=== PATIENT | male | born 1965 | race Caucasian/White ===

== ENCOUNTER → 2017-03-20 | Outpatient (CLI) | payer BC ==
[~2017-03-20] MED LIST: EFFEXOR XR PO; HYDROCODONE-APA1 T33 PO; LIPITOR PO; PROTONIX PO
--- NOTE | ~2017-03-20 | CT2 ---
[facility] A Service of [facility] / [facility] RADIOLOGY TEXT RESULTS PATIENT: HERB MABRY LOCATION: [facility] : 63 UNIT #: [id number] AGE: [address]: Bandar Servin MD SEX: M ORDER DR: [id number] [facility]. [place], [place] [address] [id number] O MR#: [id number] Acc #: [id number] NAME: HERB MABRY : 1965 SEX: M STUDY DATE/TIME: 03/20/2017 11:06 UNIT: [facility]AT ROOM: STUDY DESCRIPTION: CT Abd and Pelv W Cont Attending Physician: Bandar Servin M.D. Referring Physician: Bandar Servin M.D. Ordering Physician: Bandar Servin M.D. Primary Care Physician: Bandar Servin M.D. MEDICAL IMAGING REPORT This report is preliminary unless electronic signature is present EXAM CT abdomen and pelvis with contrast INDICATION Left lower quadrant abdominal pain for the past 2 months. PROCEDURE Contrast-enhanced CT of the abdomen and pelvis. This CT exam was performed with one or more of the following radiation dose reduction techniques: automatic exposure control, adjustment of mA and/or kV according to patient size, and iterative reconstruction. COMPARISON 09/26/2005 FINDINGS ABDOMEN WITH CONTRAST: The included lung bases are clear. Liver, spleen, kidneys, adrenal glands, pancreas are unremarkable. Previous cholecystectomy. The bowel loops are nondilated. Moderate colonic stool burden. Previous mesh repair of an umbilical hernia with no evidence for reherniation. PELVIS WITH CONTRAST: No pelvic mass or fluid. No aggressive appearing bone lesion. IMPRESSION 1. No clearly acute finding in the abdomen or pelvis. 2. Moderate colonic stool burden. 3. Other incidental findings detailed above. Dictated by... [facility] A Service of [facility] & [facility] RADIOLOGY TEXT RESULTS PATIENT: HERB MABRY LOCATION: [facility] : 63 UNIT #: [id number] AGE: [address]: Bandar Servin MD SEX: M ORDER DR: Jony Meredith M.D. THIS IS AN ELECTRONICALLY VERIFIED REPORT Jony Meredith M.D. at 03/20/2017 5:00 PM Bandar TD: 03/20/2017 15:07 JOB #: [id number] MEDICAL IMAGING REPORT Page 1 of 1 COPY
== END | disposition home or self-care (01) ==
LOC: CCAT 10:02
DX: R10.32 Left lower quadrant pain (principal); G89.29 Other chronic pain
CPT/HCPCS: 74177; Q9967